=== PATIENT | female | born 1995 | race Caucasian/White ===

== ENCOUNTER 2017-07-06 23:51 | Emergency (ER) | payer BC, OTHER ==
[~2017-07-06] VITALS: Ht 157.5 cm; Wt 56.0 kg
[~2017-07-06 23:51] MED LIST: ACET325T33 PO; AMOX500C2 PO
[2017-07-06 23:58] VITALS: Ht 157.5 cm; Wt 56.0 kg
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
[2017-07-07] MEDS ORDERED: HYDR-906 PO (03:22)
[2017-07-07] MEDS ORDERED: ACET500C5 PO (03:22)
== END 2017-07-07 03:30 | disposition home or self-care (01) ==
LOC: FTE 23:51
DX: S00.03XA Contusion of scalp, initial encounter (principal); S16.1XXA Strain of muscle, fascia and tendon at neck level, initial encounter; S39.012A Strain of muscle, fascia and tendon of lower back, initial encounter; Y08.89XA Assault by other specified means, initial encounter
CPT/HCPCS: 70450; 70486; 72131; Z7502

== ENCOUNTER 2018-09-24 18:30 | Inpatient (IN) | END 2018-09-27 17:10 | disposition home or self-care (01) | DRG 807 ==